=== PATIENT | female | born 1950 | race Caucasian/White ===

== ENCOUNTER 2019-02-16 07:09 | Emergency (ER) | payer OTHER, BC ==
[2019-02-16 07:56] VITALS: PULSE 59; BMI 16.9
--- NOTE | 2019-02-16 08:51 | PDOC ---
Documentation entered by Jennie Garza SCRIBE, acting as scribe for Buddy Hart MD. Buddy Hart MD: This documentation has been prepared by the derickibeGreg Maria, SCRIBE, under my direction and personally reviewed by me in its entirety. I confirm that the documentation accurately reflects all work, treatment, procedures, and medical decision making performed by me. 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 As per fpc paperwork she was found sitting upright on the floor at 5:05 am. Patient only to self and location and is unaware of why she is currently in the emergency department. Patient denies pain in her extremities, pelvis, neck, or back. Patient denies any chest pain. Patient denies headache or dizziness. Allergies: NKA Primary Care Physician: Past History - Past Medical History Allergies/Adverse Reactions: Allergies Allergy/AdvReac Type Severity Reaction Status Date / Time No Known Allergies Allergy Verified 02/16/19 07:52 Home Medications: Ambulatory Orders Docusate Sodium 50 mg PO ONCE 02/16/19 [facility]-3/Dha/Epa/Fish Oil [Fish Oil 1,600 mg/5 ml Liquid] 12.5 ml PO ONCE Anemia: Yes Asthma: No CVA: Yes COPD: No GI Disorders: Yes (PEG Tube) Hypercholesterolemia: Yes Psychiatric Problems: Yes (Bipolar, Insomnia) - Psycho Social/Smoking Cessation Hx Smoking History: Never smoked Have you smoked in the past 12 months: No Review of Systems - Review of Systems Able to Perform ROS?: No Comments:: Unable to preform ROS due to patients clinical condition. *Physical Exam - Vital Signs Last Vital Signs Temp Pulse Resp BP Pulse Ox 97.8 F 59 L 17 104/54 L 98 02/16/19 07:47 02/16/19 07:47 02/16/19 07:47 02/16/19 07:47 02/16/19 07:47 - Physical Exam Comments: 02/16/19 08:39 CONSTITUTIONAL: Well-appearing; well-nourished; in no apparent distress HEAD: Normocephalic; atraumatic EYES: PERRL; EOM intact ENMT: External appears normal; normal oropharynx NECK: Supple; non-tender; no cervical lymphadenopathy CARD: Normal S1, S2; no murmurs, rubs, or gallops RESP: Normal chest excursion with respiration; breath sounds clear and equal bilaterally; no wheezes, rhonchi, or rales ABD: + Left upper quadrant feeding tube. Soft, non-distended; non-tender; no palpable organomegaly, no palpable hernias EXT:+Contracted right hand. Non-tender to palpation; distal pulses intact SKIN: Warm, dry, no rash NEURO:+Awake and alert only to self. +Drifting in right hand. Heart Score/ECG Review - [place] Comment: 02/16/19 08:56 EKG performed at: 16-Feb-2019 at 7:41:13 Vent Rate: 67 bpm OK interval: 156 ms QRS duration: 80 ms QT/QTc: 412/435 ms P-R-T axes 69 81 82 Normal sinus rhythm. Normal ECG, ED Treatment Course - RADIOLOGY Radiology Studies Ordered: Category Date Time Status HEAD CT WITHOUT CONTRAST [CT] Stat CT Scan 02/16/19 07:56 Taken PELVIS [RAD] Stat Radiology 02/16/19 07:57 Completed Medical Decision Making - Medical Decision Making 02/16/19 08:48 patient is a well-appearing 68-year-old female with history of dementia, chronic subdural hematoma, bipolar disorder, hyperlipidemia who presents from [facility] where she was found sitting on the floor. No further history is provided and patient is unable to cooperate with a detailed H&P. In the ER, patient is awake and alert, oriented to self only, follows commands and appears to be in no distress. There is no evidence of obvious head injury at this moment. Cervical spine is nontender without any evidence of bony abnormalities. There is no obvious extremity deformity with excepton of rigt hand and full range of motion is noted at all extremities. Right hand is noted to be in flexion contraction and a right arm drift is noted. Will obtain CT of head given the patient is unable to our provide adequate history. Will obtain pelvic x-ray to rule out hip/pelvic fractures. Likely discharge. Discharge - Discharge Information Problems reviewed: Yes Clinical Impression/Diagnosis: Fall Qualifiers: Encounter type: initial encounter Qualified Code(s): W19.XXXA - Unspecified fall, initial encounter Condition: Stable Disposition: HOME - Follow up/Referral Referrals: Giuliano Pulliam MD [Primary Care Provider] - - Patient Discharge Instructions Patient Printed Discharge Instructions: DI for Closed Head Injury - Post Discharge Activity
[2019-02-16 10:44] VITALS: BP 96/55; TEMP 97
--- NOTE | 2019-02-16 12:47 | EKG ---
Test Reason : Blood Pressure : / mmHG Vent. Rate : 067 BPM Atrial Rate : 067 BPM P-R Int : 156 ms QRS Dur : 080 ms QT Int : 412 ms P-R-T Axes : 069 081 082 degrees QTc Int : 435 ms NORMAL SINUS RHYTHM NORMAL ECG NO PREVIOUS ECGS AVAILABLE Confirmed by CHITRA FITZGERALD, DOTTIE ([id number]) on 02/16/2019 12:47:24 PM Referred By: Confirmed By:DOTTIE BUENROSTRO MD
== END 2019-02-16 10:46 | disposition home or self-care (01) ==
LOC: JER 07:09
DX: Z04.3 Encounter for examination and observation following other accident (principal); W18.39XA Other fall on same level, initial encounter; Y93.89 Activity, other specified; Y92.099 Unspecified place in other non-institutional residence as the place of occurrence of the external cause; F31.89 Other bipolar disorder; E78.5 Hyperlipidemia, unspecified; F03.90 Unspecified dementia, unspecified severity, without behavioral disturbance, psychotic disturbance, mood disturbance, and anxiety; S06.5X9A Traumatic subdural hemorrhage with loss of consciousness of unspecified duration, initial encounter
CPT/HCPCS: 70450-TC; 72170-TC-FY; 93005; 93010; 99283-25

== ENCOUNTER 2019-03-03 10:03 | Emergency (ER) | payer OTHER, BC ==
[2019-03-03 10:34] VITALS: BMI 19.6
--- NOTE | 2019-03-03 10:43 | PDOC ---
History of Present Illness - General Chief Complaint: G Tube Problem Stated Complaint: TUBE REMOVAL Time Seen by Provider: 03/03/19 10:36 History Source: Patient Exam Limitations: No Limitations - History of Present Illness Initial Comments: 03/03/19 10:43 Vanessa Flores is a 68F with PMH CVA, dysphagia s/p PEG tube placement, encephalopathy, dementia, ICH, bipolar depression, HLD sent by Dr. Pulliam from [facility] for PEG tube removal. Patient has dementia and is limited in her ability to provide history. Says she has no idea why she was sent to ED, but says she feels completely normal, denies any chest pain, SOB, palpitations, abd pain, urinary symptoms, N/V/C/D, dizziness, weakness. When asked about PEG, says she does not remember last time it was used, denies any dysphagia, does not remember last time she ate or if she can eat at all. Called rehab, nurse reports that patient has never needed PEG, has been eating PO very well. Has appointment to remove PEG April 11, 2019, but patient has been trying to rip out the tube and an abdominal binder placed to prevent this. Reports that Dr. Pulliam would like PEG removed in ED at this time as it is not being used. Past History - Past Medical History Allergies/Adverse Reactions: Allergies Allergy/AdvReac Type Severity Reaction Status Date / Time No Known Allergies Allergy Verified 03/03/19 10:35 Home Medications: Ambulatory Orders Docusate Sodium [Stool Softener] 200 mg PO DAILY 02/16/19 Melatonin 5 mg PO DAILY 02/16/19 Multivitamin with Iron [Multivitamins with Iron] 1 each PO DAILY 02/16/19 [facility]-3/Dha/Epa/Fish Oil [Fish Oil 1,600 mg/5 ml Liquid] 12.5 ml PO ONCE Polyethylene Glycol 3350 17 gm PO DAILY 02/16/19 Quetiapine Fumarate [Seroquel -] 25 mg PO DAILY 02/16/19 Sennosides [Senna] 8.6 mg PO DAILY 02/16/19 Aa/Hydrolyzed Collagen, Whey [Lps 15-30 Liquid] 960 ml PO BID 03/03/19 Acetaminophen [Tylenol] 650 mg PO QID 03/03/19 Aspirin 81 mg PO DAILY 03/03/19 Atorvastatin Ca [Lipitor] 40 mg PO HS 03/03/19 Cyanocobalamin [Vitamin B12 -] 1,000 mcg PO DAILY 03/03/19 Heparin - 5,000 unit SQ BID 03/03/19 Anemia: Yes Asthma: No CVA: Yes COPD: No GI Disorders: Yes (PEG Tube) Hypercholesterolemia: Yes Psychiatric Problems: Yes (Bipolar, Insomnia) - Immunization History Immunization Up to Date: Yes - Psycho Social/Smoking Cessation Hx Smoking History: Unknown if ever smoked Have you smoked in the past 12 months: No Information on smoking cessation initiated: No Hx Alcohol Use: No Drug/Substance Use Hx: No Review of Systems - Review of Systems Able to Perform ROS?: Yes Constitutional: No: Symptoms Reported HEENTM: No: Symptoms Reported Respiratory: No: Symptoms reported Cardiac (ROS): No: Symptoms Reported ABD/GI: No: Symptoms Reported : No: Symptoms Reported Musculoskeletal: No: Symptoms Reported Integumentary: No: Symptoms Reported Neurological: No: Symptoms reported Endocrine: Yes: Symptoms Reported Hematologic/Lymphatic: No: Symptoms Reported All Other Systems: Reviewed and Negative *Physical Exam - Vital Signs Last Vital Signs Temp Pulse Resp BP Pulse Ox 97.5 F L 65 18 113/72 100 03/03/19 10:15 03/03/19 10:15 03/03/19 10:15 03/03/19 10:15 03/03/19 10:15 - Physical Exam General Appearance: Yes: Nourished. No: Appropriately Dressed, Apparent Distress HEENT: positive: EOMI, RACHEL, Normal Voice. negative: Symmetrical, Pharynx Normal (dry mouth and tonfue), Scleral Icterus (R), Scleral Icterus (L) Neck: positive: Supple. negative: Tender, Rigid, Lymphadenopathy (R), Lymphadenopathy (L) Respiratory/Chest: positive: Lungs Clear, Normal Breath Sounds. negative: Chest Tender, Respiratory Distress, Accessory Muscle Use, Crackles, Rales, Rhonchi, Stridor, Wheezing Cardiovascular: positive: Regular Rhythm, Regular Rate Female Pelvic Exam: positive: normal external exam Gastrointestinal/Abdominal: positive: Normal Bowel Sounds, Flat, Soft, Other ( has PEG tube placed in L abdomen, in place, no erythema or pus from insertion site, abdomen non-tender). negative: Tender, Organomegaly, Distended, Guarding Musculoskeletal: positive: Normal Inspection. negative: CVA Tenderness Extremity: positive: Normal Capillary Refill, Normal Inspection. negative: Normal Range of Motion, Tender Integumentary: positive: Normal Color, Dry, Warm Neurologic: positive: Alert, Normal Mood/Affect, Normal Response. negative: Fully Oriented (oriented to self and birthday, knows she is in the hospital) Medical Decision Making - Medical Decision Making 03/03/19 10:43 Vanessa Flores is a 68F with PMH CVA, dysphagia s/p PEG tube placement, encephalopathy, dementia, ICH, bipolar depression, HLD sent by Dr. Pulliam from [facility] for PEG tube removal. Patient is completely asymptomatic at this time, poor historian, but no abnormalities on physical exam. PEG appears normal, taped shut, in place, no irritation to skin, no abdominal pain. Patient given cup of water to drink, swallowed without issue. Contacting Dr. Pulliam for confirmation of PEG removal and follow-up plan. 03/03/19 12:52 Dr. Pulliam contacted rehab center, explains that patient has dementia and is grabbing at the PEG, nursing evaluated PEG and found leak around stoma, concerned about displacement. However, patient has been 100% PO intake and is scheduled to have PEG removed in March. Does not need to have PEG replaced, but if it could be removed would benefit patient. Will consult GI consultant about case and further plan to remove as well as aftercare. 03/03/19 13:[address] Nguyen with GI service, will be available later today to remove PEG. at bedside now, informed of plan, agrees with this. Patient re-evaluated, more confused than before but pleasant and re-orientable. 03/03/19 14:24 Dr. Nguyen in ED, removed PEG without issue, patient tolerated well. Stable to be sent back to rehab with . Discharge - Discharge Information Problems reviewed: Yes Clinical Impression/Diagnosis: PEG tube malfunction Condition: Stable - Admission No - Follow up/Referral Referrals: Giuliano Pulliam MD [Primary Care Provider] - - Patient Discharge Instructions Additional Instructions: Today you were evaluated for your PEG tube. Out transplant surgeon arrived in the ED to remove the tube, as you no longer need it. Please keep the hole where it was clean and dressed, and it should close on its own. Please follow-up with Dr. Pulliam in the next few days for further care. If you experience fever, chills, nausea, vomiting, abdominal pain, discharge from the site, or any other new or concerning symptoms, please return to the emergency room. - Post Discharge Activity
--- NOTE | 2019-03-03 12:12 | PDOC ---
Attending Attestation - Resident Resident Name: Shane Enamorado - ED Attending Attestation I have performed the following: I have examined & evaluated the patient, The case was reviewed & discussed with the resident, I agree w/resident's findings & plan, Exceptions are as noted - HPI HPI: 03/03/19 13:40 Agree with resident HPI - Physicial Exam PE: 03/03/19 13:42 Agree with resident exam - Medical Decision Making 03/03/19 13:42 68F with PMH CVA, dysphagia s/p PEG tube placement, encephalopathy, dementia, ICH, bipolar depression, [facility] staff as well as Dr. Pulliam, patient has not used the PEG tube for p.o. intake since March and it is not necessary. Patient has been intermittently attempting to pull out the PEG tube, and today there was concern about dislodgment, prompting transfer to the emergency department for removal. They also report they have been trying to get GI to remove the PEG tube in the prison for months, but they have not been able to get GI to come in. PT is well appearing, passed dysphagia screen in the ED. Dr. Pulliam requesting GI consult. We spoke with Dr. Montoya who will come down to evaluate 03/03/19 14:00 Dr. Montoya removed tube at bedside with no complications Pt clinically stable for DC back to [facility]
--- NOTE | 2019-03-03 14:05 | PN ---
Progress Note (short form) - Note Progress Note: 68F sent from [place] to have G-Tube removed. Has been tolerating PO now per Dr. Pulliam for several weeks. G-Tube noted in LUQ. No periperg erythema, induration or fluctuance. Using traction, G-Tube was removed without difficulty. Keep dry dressing in place until stoma closed
[2019-03-03 16:22] VITALS: BP 115/66; PULSE 77; TEMP 98.2
== END 2019-03-03 16:32 ==
LOC: JER 10:03
DX: K94.23 Gastrostomy malfunction (principal); Z86.73 Personal history of transient ischemic attack (TIA), and cerebral infarction without residual deficits; R13.10 Dysphagia, unspecified; F31.9 Bipolar disorder, unspecified; E78.5 Hyperlipidemia, unspecified; F03.90 Unspecified dementia, unspecified severity, without behavioral disturbance, psychotic disturbance, mood disturbance, and anxiety
CPT/HCPCS: 99282-25